=== PATIENT | female | born 1955 | race Caucasian/White ===

== ENCOUNTER → 2024-01-23 06:27 | Day surgery (SDC) | payer OTHER, SELFPAY ==
[2024-01-23 07:14] LABS: Glucose - Point of Care 131 mg/dl (70-99)
== END ==
LOC: GI 06:27
PROVIDERS: ATTENDING PHYSICIAN Internal Medicine
DX: Z12.11 Encounter for screening for malignant neoplasm of colon (principal); D12.3 Benign neoplasm of transverse colon; K63.5 Polyp of colon; K57.30 Diverticulosis of large intestine without perforation or abscess without bleeding; K64.8 Other hemorrhoids; Z86.010 Personal history of colon polyps
CPT/HCPCS: 45385; 45380; 88305; 82962

== ENCOUNTER 2024-03-07 10:45 | Emergency (ER) | payer OTHER, SELFPAY ==
[2024-03-07 10:51] VITALS: BP 132/65
--- NOTE | 2024-03-07 13:03 | ED.GENMED ---
History of Present Illness
General
Chief Complaint: Musculo-Skeletal Complaint
Time Seen by Provider: 03/07/24 12:25
History of Present Illness
History of Present Illness:
68-year-old female with history of [id number] diabetes presents to the emergency department for evaluation of persistent left knee pain for the past 6 weeks. States she has had frequent episodes of the knee giving out. Today gave out
she fell to the ground. She has difficulty ambulating secondary to pain. Denies any acute knee injuries
Review of Systems
Review of Systems
Allergies reviewed?: Yes
All Other Systems: ROS reviewed and negative except as documented in HPI and ROS
Phy Exam
Physical Exam
Physical Exam:
GEN: Well appearing, NAD, WDWN
HEENT: Oral mucosa moist, no scleral icterus
Cardiac: Regular rate
Lung: No respiratory distress, no tachypnea
MSK: No gross deformity or injuries, left knee appears atraumatic without effusion or obvious swelling. Range of motion normal however flexion elicits pain. Positive grind test, no ligamentous laxity
Skin: Good color, no pallor or jaundice, no rashes
Neuro: AO x3, moves all extremities freely
Psych: Calm, cooperative
Course
Orders/Labs/Results
Orders:
Orders
03/07/24 10:55
CR Knee - Left 4 Or More View* Urgent
Comment:
Reason For Exam: fall, pain
03/07/24 13:06
Knee Immobilizer Left-Treatmen ONCE
Vital Signs
Initial and Last Documented VS:
Initial Vital Signs
Temp Pulse Resp BP Pulse Ox
98.0 F 75 16 132/65 98
03/07/24 10:51 03/07/24 10:51 03/07/24 10:51 03/07/24 10:51 03/07/24 10:51
Last Documented Vital Signs
Temp Pulse Resp BP Pulse Ox
98.0 F 75 16 132/65 98
03/07/24 10:51 03/07/24 10:51 03/07/24 10:51 03/07/24 10:51 03/07/24 10:51
MDM/Problems Addressed
MDM/Problems Addressed:
X-rays unremarkable. Placed in knee immobilizer due to frequent giving way of the knee, recommend outpatient Ortho follow-up, she was prescribed corticosteroids by her primary care physician after failing NSAIDs
*Critical Care Note
Total Time (30-74mins, 75-104mins- exclusive of procedures): Not Applicable
ED Attending Note
-
Portions of this chart may have been created with voice recognition software.� Occasional wrong word or��sound alike� substitutions may have occurred due to the inherent limitations of voice recognition software.
Discharge Plan
Departure
Patient Disposition: Home (Routine Discharge)
Date of Disposition: 03/07/24
Time of Disposition: 13:03
Patient with high blood pressure during this ER visit?: No
Discharge Problem:
Chronic instability of left knee
Instructions: Internal Derangement of the Knee (DC)
Referrals:
Cristino Noriega MD [Active] - Call in 1-3 days for appt
Activity Restrictions/Additional Instructions:
Wear the knee immobilizer whenever walking. It should be removed for sleep, bathing or prolonged periods of sitting.
Ice the knee after long periods of walking
Take the medications as prescribed by your primary doctor
Follow up with Orthopedics
Interventions
Interventions:
*General Assessment Last Done: 03/07/24 10:51
*ED COVID-19 Vaccine History Last Done: 03/07/24 10:51
*Nursing Disposition Last Done: 03/07/24 13:56
ED-Musculoskeletal Assessment Last Done: 03/07/24 13:56
Discharge Date and Time
Discharge Date/Time: 03/07/24 13:57
Print Language: TUVALU[place]
== END 2024-03-07 13:57 | disposition home or self-care (01) ==
LOC: EMR 10:45
PROVIDERS: EMERGENCY PHYSICIAN Emergency Medicine; FAMILY PHYSICIAN Family Medicine
DX: M23.52 Chronic instability of knee, left knee (principal); E11.9 Type 2 diabetes mellitus without complications
CPT/HCPCS: 99283; 29505; 73564

== ENCOUNTER → 2024-04-16 10:25 | Outpatient (REF) | payer OTHER, SELFPAY | LOC: PAVMRI 10:25 | PROVIDERS: ATTENDING PHYSICIAN Orthopaedic Surgery; FAMILY PHYSICIAN Family Medicine | DX: M54.16 Radiculopathy, lumbar region (principal); M47.816 Spondylosis without myelopathy or radiculopathy, lumbar region | CPT/HCPCS: 71046; 72040; 72148 ==

== ENCOUNTER → 2024-11-04 15:59 | Outpatient (REF) | payer OTHER, SELFPAY | LOC: RAD 15:59 | PROVIDERS: ATTENDING PHYSICIAN Family Medicine | DX: M25.551 Pain in right hip (principal); M25.552 Pain in left hip | CPT/HCPCS: 73522 ==

== ENCOUNTER → 2024-11-04 16:34 | Outpatient (REF) | payer OTHER, SELFPAY | LOC: WDC 16:34 | PROVIDERS: ATTENDING PHYSICIAN Family Medicine | DX: Z12.31 Encounter for screening mammogram for malignant neoplasm of breast (principal) | CPT/HCPCS: 77063; 77067 ==

== ENCOUNTER → 2025-02-23 11:04 | Outpatient (REF) | payer OTHER, SELFPAY | LOC: RAD 11:04 | PROVIDERS: ATTENDING PHYSICIAN Family Medicine | DX: M79.605 Pain in left leg (principal) | CPT/HCPCS: 93971 ==

== ENCOUNTER → 2025-04-29 15:58 | Outpatient (REF) | payer OTHER, SELFPAY | LOC: RAD 15:58 | PROVIDERS: ATTENDING PHYSICIAN Family Medicine; FAMILY PHYSICIAN Family Medicine | DX: S99.911A Unspecified injury of right ankle, initial encounter (principal); S99.912A Unspecified injury of left ankle, initial encounter; M79.672 Pain in left foot; M79.671 Pain in right foot | CPT/HCPCS: 73610; 73630 ==